=== PATIENT | male | born 1955 | race African-American/Black ===

== ENCOUNTER 2017-01-28 13:12 | Emergency (ER) | payer OTHER ==
[~2017-01-28] VITALS: Ht 172.7 cm; Wt 81.6 kg
[~2017-01-28 13:12] MED LIST: ACUVAIL 0.45%1 EACH LEFT EYE; ALBUTEROL SULF8.5 GM INH; BP pill; CYCLOBENZAPRINE10 MG ORAL; HUMALOG100 UNIT/4 SUBQ; IBUPROFEN600 MG ORAL; LANTUS SOL100 UNIT/1 SUBQ; LANTUS100 UNIT/1 SQ; OCUFLOX5 ML BOTH EYES; PREDNISONE20 MG ORAL; PROMETHAZINE-C118 M1 ORAL; TYLENOL 8 HOUR650 M1 ORAL; ZITHROMAX250 MG ORAL; [UNRECOGNIZED DRUG - REMARK]
[2017-01-28 13:37] VITALS: BP 144/92
[2017-01-28] MEDS ORDERED: ACETAMINOPHEN-1 EAC1 ORAL (13:54)
[2017-01-28] MEDS ORDERED: AMOXICILLIN500 MG ORAL (13:54)
[2017-01-28 14:07] VITALS: BP 144/92
--- NOTE | 2017-01-28 16:11 | Emergency Room Report ---
History of Present Illness General Chief Complaint: Earache Source: Patient Present Illness HPI 61-year-old male presents ED for evaluation. Patient states that for the last 4 months he's been having left ear pain. Pain is 8/10, throbbing, nonradiating. Denies any change in hearing. Patient believes it started after he had his stroke. States he had 2 strokes at the end of last year. Denies any headaches, blurry vision. Denies any chest pain or shortness of breath. No aggravating or leading factors. Denies any other associated symptoms Allergies: Coded Allergies: NO KNOWN ALLERGIES (Verified Allergy, Unknown, 01/25/16) Uncoded Allergies: ENVIRONMENTAL (Allergy, Unknown, 01/04/16) Patient History Past Medical History: HTN, CVA/TIA, seizures Past Surgical History: none Pertinent Family History: none Social History: Denies: alcohol use, drug use, smoking Immunizations: UTD Reviewed Nursing Documentation: PMH: Agreed, PSxH: Agreed Nursing Documentation-PMH Hx Hypertension: Yes Hx Pacemaker: No Hx Asthma: No Hx COPD: No Hx Diabetes: Yes Hx Cancer: No Hx Gastrointestinal Problems: No Hx Dialysis: No Hx Neurological Problems: No Hx Cerebrovascular Accident: Yes - Hemmorhagic. Left sided weakness. Hx Seizures: Yes Review of Systems All Other Systems: negative except mentioned in HPI Physical Exam Vital Signs Date Time Temp Pulse Resp B/P Pulse Ox O2 Delivery O2 Flow Rate FiO2 01/28/17 13:20 97.9 72 16 144/92 98 Room Air Sp02 EP Interpretation: reviewed, normal General Appearance: no apparent distress, alert, GCS 15, non-toxic Head: normocephalic, atraumatic Eyes: bilateral eye PERRL, bilateral eye normal inspection ENT: hearing grossly normal, normal pharynx, no angioedema, normal voice, other - L TM poor light reflex Neck: full range of motion, supple/symm/no masses Respiratory: chest non-tender, lungs clear, normal breath sounds, speaking full sentences Cardiovascular #1: regular rate, rhythm, no edema Cardiovascular #2: 2+ carotid (R), 2+ carotid (L), 2+ radial (R), 2+ radial (L) , 2+ dorsalis pedis (R), 2+ dorsalis pedis (L) Gastrointestinal: normal bowel sounds, non tender, soft, non-distended, no guarding, no rebound Rectal: deferred Genitourinary: normal inspection, no CVA tenderness Musculoskeletal: back normal, gait/station normal, normal range of motion, non- tender Neurologic: alert, oriented x3, responsive, motor strength/tone normal, sensory intact, speech normal Psychiatric: judgement/insight normal, memory normal, mood/affect normal, no suicidal/homicidal ideation Reflexes: 3+ bicep (R), 3+ bicep (L), 3+ tricep (R), 3+ tricep (L), 3+ knee (R) , 3+ knee (L) Skin: normal color, no rash, warm/dry, well hydrated Lymphatic: no adenopathy Medical Decision Making Diagnostic Impression: Primary Impression: Earache, left ER Course Hospital Course 61-year-old M presents to ED with pain L ear. no fever. Differential diagnoses include: TM perforation, otitis externa, otitis media Clinical course Patient placed on stretcher. After initial history, physical exam reveals a male in no acute distress. L TM poor light reflex. Remainder of physical exam unremarkable. clinical findings consistent with otitis media Diagnosis - L ear ache Stable and discharged to home with Rx Tylenol #3, Amoxicillin. Followup with PMD. Return to ED if symptoms recur or worsen Last Vital Signs Date Time Temp Pulse Resp B/P Pulse Ox O2 Delivery O2 Flow Rate FiO2 01/28/17 14:07 97.9 72 16 144/92 98 Room Air Status: improved Disposition: HOME, SELF-CARE Condition: Stable Scripts Acetaminophen With Codeine (T#3) (TYLENOL #3 TAB*) Y Tab 1 TAB ORAL Q8H Y for For Pain, #20 TAB Prov: PARVEZ VERGARA M.D. 01/28/17 Amoxicillin* (AMOXIL*) 500 Mg Capsule 500 MG ORAL THREE TIMES A DAY, #30 CAP Prov: PARVEZ VERGARA M.D. 01/28/17 Referrals: CLAUDIA JAIN Vishal MD [facility]ERRIN (PCP) Patient Instructions: Earache PARVEZ VERGARA M.D. Jan 28, 2017 16:11
== END 2017-01-28 14:10 | disposition home or self-care (01) ==
LOC: EMR 13:45
DX: H92.02 Otalgia, left ear (principal); I10 Essential (primary) hypertension; E11.9 Type 2 diabetes mellitus without complications; I69.154 Hemiplegia and hemiparesis following nontraumatic intracerebral hemorrhage affecting left non-dominant side
CPT/HCPCS: 99284

== ENCOUNTER 2017-11-14 17:37 | Emergency (ER) | payer OTHER ==
[~2017-11-14] VITALS: Ht 172.7 cm; Wt 76.2 kg
[~2017-11-14 17:37] MED LIST changes: +ACETAMINOPHEN-1 EAC1 ORAL; +AMOXICILLIN500 MG ORAL
[2017-11-14 17:55] VITALS: BP 120/82
--- NOTE | 2017-11-14 18:39 | Emergency Room Report ---
History of Present Illness General Chief Complaint: Constipation Source: Patient Present Illness HPI 61-year-old male patient presents ER complaining of constipation for the past 6 days. Patient reports no bowel movements or diarrhea during this time. Denies abdominal pain. Reports currently taking [place] pain medication due to history of stroke last year. Reports currently pacing by pain management. Reports currently taking stool softener, does not know any stool softener. Denies other acute symptoms at this time. Denies fever, chest pain, shortness of breath, intractable vomiting. Allergies: Coded Allergies: NO KNOWN ALLERGIES (Verified Allergy, Unknown, 01/25/16) Uncoded Allergies: ENVIRONMENTAL (Allergy, Unknown, 01/04/16) Patient History Past Medical History: see triage record Reviewed Nursing Documentation: PMH: Agreed; PSxH: Agreed Nursing Documentation-PMH Past Medical History: No History, Except For Hx Cardiac Problems: No Hx Hypertension: Yes Hx Pacemaker: No Hx Asthma: No Hx COPD: No Hx Diabetes: Yes Hx Cancer: No Hx Gastrointestinal Problems: No Hx Dialysis: No History Of Psychiatric Problem: No Hx Neurological Problems: Yes Hx Cerebrovascular Accident: Yes - left sided deficit Hx Seizures: No Review of Systems All Other Systems: negative except mentioned in HPI Physical Exam Vital Signs Date Time Temp Pulse Resp B/P (MAP) Pulse Ox O2 Delivery O2 Flow Rate FiO2 18 17:55 97.9 75 18 120/82 97 Room Air 97.9 Sp02 EP Interpretation: reviewed, normal General Appearance: well appearing, no apparent distress, alert, GCS 15, non- toxic Head: normocephalic, atraumatic Eyes: bilateral eye normal inspection, bilateral eye PERRL ENT: hearing grossly normal, normal pharynx, no angioedema, normal voice, uvula midline, moist mucus membranes Neck: full range of motion Respiratory: lungs clear, normal breath sounds, no rhonchi, no respiratory distress, no accessory muscle use, no wheezing, speaking full sentences Cardiovascular #1: regular rate, rhythm, no edema Gastrointestinal: normal bowel sounds, non tender, soft, no mass, non-distended , no guarding, no rebound, other - negative Rovsing, negative [place] Neurologic: alert, oriented x3, responsive Psychiatric: mood/affect normal Skin: no rash Medical Decision Making PA Attestation Dr. Marie is my supervising Physician whom patient management has been discussed with. Diagnostic Impression: Primary Impression: Constipation ER Course Pt presents to ED c/o constipation DDX considered but are not limited to cystitis, pyelonephritis, constipation. Low suspicion for appendicitis, no TTP at McBurney's point, negative Rovsing sign. notably patient requires imaging or labs at this time. VITAL SIGNS are WNL, patient is afebrile. ER COURSE physical exam benign, normal bowel sounds, no abdominal tenderness to palpation , patient denies abdominal pain. Patient reports left-sided deficits secondary to stroke last year, denies new or worsening of symptoms. Denies chest pain, shortness of breath, dizziness, denies other acute complaints at this time. Followup with PCP. informed patient constipation symptoms likely secondary to chronic opioid use. Will provide patient with medication for constipation symptoms, continue take stool softener. Drink plenty of fluids. Return to ER if unable to have bowel movement or new or worsening of symptoms. Follow with PCP to discuss alternative for pain treatment, due to medication likely causing constipation symptoms. DISCHARGE -Rx provided for polyethylene glycol patient FOR discharge to home, resting comfortably in bed, nontoxic appearing, able to answer questions without difficulty. Will provide with patient care instructions and any necessary prescriptions. Patient understands and agrees to treatment plan. Patient encouraged to drink plenty of fluids. Patient to take medication as instructed. Care plan and follow-up instructions provided. Patient questions asked and answered. Patient instructed to follow-up with director trading in 3 - 5 days. ER precautions given. Patient instructed to return to ER immediately for any new or worsening of symptoms. Including but not limited to fever, worsening pain , intractable vomiting. - Please note that this Emergency Department Report was dictated using Mpaxwindows infrastructure engineer technology software, occasionally this can lead to erroneous entry secondary to interpretation by the dictation equipment. Last Vital Signs Date Time Temp Pulse Resp B/P (MAP) Pulse Ox O2 Delivery O2 Flow Rate FiO2 11/14/17 17:55 97.9 75 18 120/82 97 Room Air 97.9 Disposition: HOME, SELF-CARE Condition: Stable Scripts Polyethylene Glycol 3350* (POLYETHYLENE GLYCOL 3350*) 17 Gm Powd.pack 17 GM ORAL BEDTIME PRN for Constipation, #34 PACKET Prov: Angel Llamas 11/14/17 Patient Instructions: Constipation, Adult Additional Instructions: Followup with primary care provider in 3 -5 days. Discuss need for new or alternative treatment. Take medications as directed. Drink plenty of fluids, continue take stool softener, increase fiber intake. Patient questions asked and answered. ER precautions given, patient instructed to return to ER immediately for any new or worsening of symptoms. Angel Llamas November 14, 2017 18:39
[2017-11-14] MEDS ORDERED: SENNA LAXATIVE8.6 MG PO (18:46)
[2017-11-14] MEDS ORDERED: POLYETHYLENE GL17 GM ORAL (18:51)
== END 2017-11-14 19:03 | disposition home or self-care (01) ==
LOC: EMR 18:45
DX: K59.00 Constipation, unspecified (principal); I10 Essential (primary) hypertension; Z86.73 Personal history of transient ischemic attack (TIA), and cerebral infarction without residual deficits
CPT/HCPCS: 99283

== ENCOUNTER 2018-05-06 17:43 | Emergency (ER) | payer OTHER ==
[~2018-05-06] VITALS: Ht 172.7 cm; Wt 72.6 kg
[~2018-05-06 17:43] MED LIST changes: +POLYETHYLENE GL17 GM ORAL; +SENNA LAXATIVE8.6 MG PO
[2018-05-06 18:47] VITALS: BP 139/119
[2018-05-06 19:11] LABS: APPEARANCE,URINE CLEAR; BILIRUBIN, URINE NEGATIVE (NEGATIVE); COLOR,URINE PALE YELLOW; GLUCOSE, URINE (UA) NEGATIVE (NEGATIVE); KETONES,URINE NEGATIVE (NEGATIVE); LEUKOCYTE ESTERASE ,URINE 1+ (NEGATIVE); NITRITE,URINE NEGATIVE (NEGATIVE); PH,URINE 6.5 (4.5-8.0); PROTEIN,URINE NEGATIVE (NEGATIVE); UROBILINOGEN,URINE NORMAL MG/DL (0.0-1.0)
[2018-05-06] MEDS ORDERED: SENNA LAXATIVE8.6 MG PO (19:29)
[2018-05-06] MEDS ORDERED: COLACE100 MG ORAL (19:29)
--- NOTE | 2018-05-06 19:32 | Emergency Room Report ---
History of Present Illness General Chief Complaint: Constipation Source: Patient Present Illness HPI 62-year-old male, presenting with constipation for the last 6 days. Patient did say that he has been some gas. Has suffered from constipation the past. Has not seen a gastrointestinal doctor in the past. No colonoscopy. No history of abdominal surgeries. Denies any abdominal pain. No nausea no vomiting has been eating and drinking well Allergies: Coded Allergies: NO KNOWN ALLERGIES (Verified Allergy, Unknown, 01/25/16) Uncoded Allergies: ENVIRONMENTAL (Allergy, Unknown, 01/04/16) Patient History Past Medical History: see triage record Past Surgical History: none Pertinent Family History: none Reviewed Nursing Documentation: PMH: Agreed; PSxH: Agreed Nursing Documentation-PMH Past Medical History: No History, Except For Hx Cardiac Problems: No Hx Hypertension: Yes Hx Pacemaker: No Hx Asthma: No Hx COPD: No Hx Diabetes: Yes Hx Cancer: No Hx Gastrointestinal Problems: No Hx Dialysis: No History Of Psychiatric Problem: No Hx Neurological Problems: Yes - left sided weakness Hx Cerebrovascular Accident: Yes - left sided deficit x 2, aneurysm Hx Seizures: Yes Review of Systems All Other Systems: negative except mentioned in HPI Physical Exam Vital Signs Date Time Temp Pulse Resp B/P (MAP) Pulse Ox O2 Delivery O2 Flow Rate FiO2 05/06/18 17:56 98.4 71 14 147/97 99 Room Air Sp02 EP Interpretation: reviewed, normal General Appearance: normal inspection, well appearing, no apparent distress, other - eating a sandwich. no distress Head: normocephalic, atraumatic Eyes: bilateral eye normal inspection, bilateral eye PERRL, bilateral eye EOMI ENT: normal ENT inspection, normal pharynx, normal voice, moist mucus membranes Neck: normal inspection, full range of motion, supple Respiratory: normal inspection, lungs clear, normal breath sounds, no respiratory distress, no retraction, no wheezing, speaking full sentences, chest symmetrical Cardiovascular #1: normal inspection, regular rate, rhythm, no edema, normal capillary refill Cardiovascular #2: 2+ radial (R), 2+ radial (L) Gastrointestinal: normal inspection, non tender, soft, non-distended, no guarding, other - nontender abdomen. nondistended Musculoskeletal: normal inspection, back normal, normal range of motion, non- tender Neurologic: normal inspection, alert, oriented x3, responsive, motor strength/ tone normal, sensory intact, normal gait, speech normal Psychiatric: normal inspection, judgement/insight normal, memory normal Skin: normal inspection, normal color, no rash, warm/dry, well hydrated, normal turgor Medical Decision Making Diagnostic Impression: Primary Impression: Constipation ER Course 62-year-old male presenting with 60s of constipation, is passing gas, not having any abdominal pain DDX: Constipation, possibility of opiate-induced he does have a habit of taking [place] Plan: Labs, KUB ER course: Patient has remained stable during ED stay. He has been eating and drinking here, eating a sandwich although I did not endorse this Repeat abdominal exam has been benign, vital signs stable pt had BM after enema Disposition: Patient is to be discharged to home. Prescriptions given are colace and senna Patient is instructed to follow up with their primary care doctor within 5 days. Strict return precautions discussed with patient such as fever, chills, worsening/severe pain, chest pain, SOB, nausea, vomiting, which may indicate severe illness. Patient verbalizes understanding and agrees with plan. Please note that this Emergency Department Report was dictated using [employer] hand technology software, occasionally this can lead to erroneous entry secondary to interpretation by the dictation equipment Rhythm Strip EP Interpretation: Yes Rate: 67 Rhythm: NSR, no PVCs, no ectopy EKG Diagnostic Results EP Interpretation: Yes Rate: normal Rhythm: NSR ST Segments: No acute changes ASA given to patient: No Laboratory Tests Test 05/06/18 18:20 05/06/18 19:20 Urine Color Pale yellow Urine Appearance Clear Urine pH 6.5 (4.5-8.0) Urine Specific [place] 1.010 (1.005-1.035) Urine Protein Negative (NEGATIVE) Urine Glucose (UA) Negative (NEGATIVE) Urine Ketones Negative (NEGATIVE) Urine Blood Negative (NEGATIVE) Urine Nitrite Negative (NEGATIVE) Urine Bilirubin Negative (NEGATIVE) Urine Urobilinogen Normal MG/DL (0.0-1.0) Urine Leukocyte Esterase 1+ (NEGATIVE) H Urine RBC 0-2 /HPF (0 - 0) H Urine WBC 0-2 /HPF (0 - 0) Urine Squamous Epithelial Cells None /LPF (NONE/OCC) Urine Bacteria Few /HPF (NONE) White Blood Count 6.9 K/UL (4.8-10.8) Red Blood Count 5.44 M/UL (4.70-6.10) Hemoglobin 17.3 G/DL (14.2-18.0) Hematocrit 50.3 % (42.0-52.0) Mean Corpuscular Volume 93 FL (80-99) Mean Corpuscular Hemoglobin 31.9 PG (27.0-31.0) H Mean Corpuscular Hemoglobin Concent 34.5 G/DL (32.0-36.0) Red Cell Distribution Width 11.0 % (11.6-14.8) L Platelet Count 251 K/UL (150-450) Mean Platelet Volume 7.4 FL (6.5-10.1) Neutrophils (%) (Auto) 44.5 % (45.0-75.0) L Lymphocytes (%) (Auto) 45.2 % (20.0-45.0) H Monocytes (%) (Auto) 4.9 % (1.0-10.0) Eosinophils (%) (Auto) 3.4 % (0.0-3.0) H Basophils (%) (Auto) 2.0 % (0.0-2.0) Sodium Level 137 MMOL/L (136-145) Potassium Level 4.8 MMOL/L (3.5-5.1) Chloride Level 102 MMOL/L (98-107) Carbon Dioxide Level 28 MMOL/L (21-32) Anion Gap 7 mmol/L (5-15) Blood Urea Nitrogen 8 mg/dL (7-18) Creatinine 0.8 MG/DL (0.55-1.30) Estimate Glomerular Filtration Rate > 60 mL/min (>60) Glucose Level 99 MG/DL (74-106) Calcium Level 10.0 MG/DL (8.5-10.1) Total Bilirubin 0.9 MG/DL (0.2-1.0) Aspartate Amino Transferase (AST) 54 U/L (15-37) H Alanine Aminotransferase (ALT) 67 U/L (12-78) Alkaline Phosphatase 104 U/L (46-116) Total Protein 9.8 G/DL (6.4-8.2) H Albumin 4.0 G/DL (3.4-5.0) Globulin 5.8 g/dL Albumin/Globulin Ratio 0.7 (1.0-2.7) L Lipase 189 U/L (73-393) Last Vital Signs Date Time Temp Pulse Resp B/P (MAP) Pulse Ox O2 Delivery O2 Flow Rate FiO2 05/06/18 18:47 98.4 65 14 139/119 98 Room Air Disposition: HOME, SELF-CARE Condition: Stable Scripts Sennosides (SENNA LAXATIVE) 8.6 Mg Tablet 8.6 MG PO DAILY, #20 TAB Prov: Devan Jones M.D. 05/06/18 Docusate Sodium* (COLACE*) 100 Mg Capsule 100 MG ORAL THREE TIMES A DAY, #40 CAP Prov: Devan Jones M.D. 05/06/18 Referrals: [facility]ERR[facility] (PCP) Patient Instructions: Constipation, Adult Devan Jones M.D. May 06, 2018 19:32
[2018-05-06] MEDS ORDERED: Fleet's Enema 133ml RECTAL ONE (19:45)
[2018-05-06 19:50] LABS: EOSINOPHILS % (AUTO) 3.4 % (0.0-3.0); HEMATOCRIT 50.3 % (42.0-52.0); HEMOGLOBIN 17.3 G/DL (14.2-18.0); LYMPHOCYTES % (AUTO) 45.2 % (20.0-45.0); MEAN CORPUSCULAR VOLUME 93 FL (80-99); MONOCYTES % (AUTO) 4.9 % (1.0-10.0); NEUTROPHILS % (AUTO) 44.5 % (45.0-75.0); PLATELET COUNT 251 K/UL (150-450); RED BLOOD COUNT 5.44 M/UL (4.70-6.10); WHITE BLOOD COUNT 6.9 K/UL (4.8-10.8)
[2018-05-06 19:53] LABS: POTASSIUM 4.8 MMOL/L (3.5-5.1)
[2018-05-06 20:09] LABS: ANION GAP 7 mmol/L (5-15); BLOOD UREA NITROGEN 8 mg/dL (7-18); CARBON DIOXIDE 28 MMOL/L (21-32); CHLORIDE 102 MMOL/L (98-107); CREATININE 0.8 MG/DL (0.55-1.30); SODIUM 137 MMOL/L (136-145)
[2018-05-06 20:13] LABS: ALANINE AMINOTRANSFERASE 67 U/L (12-78); ALBUMIN/GLOBULIN RATIO 0.7 (1.0-2.7); ALKALINE PHOSPHATASE 104 U/L (46-116); ASPARTATE AMINO TRANSFERASE 54 U/L (15-37); BILIRUBIN,TOTAL 0.9 MG/DL (0.2-1.0)
[2018-05-06 20:39] VITALS: BP 135/97
--- NOTE | 2018-05-07 11:28 | Diagnostic Imaging Report ---
Indication: Abdominal pain Technique: Supine view of the abdomen Comparison: none Findings: Bowel gas pattern is unremarkable. No unusual masses or calcifications. There is moderate retained stool. Impression: No acute process
--- NOTE | 2018-05-08 16:37 | Cardiology Report ---
APPROVED REPORT EKG Measurement Heart [id number] ID [id number] Normal sinus rhythm Nonspecific T wave abnormality Abnormal ECG
== END 2018-05-06 20:39 | disposition home or self-care (01) ==
LOC: EMR 18:37
DX: K59.00 Constipation, unspecified (principal); I10 Essential (primary) hypertension; E11.9 Type 2 diabetes mellitus without complications; Z86.73 Personal history of transient ischemic attack (TIA), and cerebral infarction without residual deficits
CPT/HCPCS: 36415; 74018; 80053; 81003; 83690; 85025; 93005; 99284

== ENCOUNTER 2018-10-04 19:15 | Emergency (ER) | payer OTHER ==
[~2018-10-04] VITALS: Ht 172.7 cm; Wt 70.8 kg
[~2018-10-04 19:15] MED LIST changes: +COLACE100 MG ORAL
[2018-10-04] MEDS ORDERED: Insulin Human Regular 100units/ml 3ml IV ONE (19:30)
--- NOTE | 2018-10-04 19:33 | Emergency Room Report ---
History of Present Illness General Chief Complaint: Abnormal Labs Source: Patient Present Illness HPI Patient presents with complaints of his blood glucose remaining elevated He reports that he had some oatmeal with large amount of sugar than usual today Patient is an insulin-dependent diabetic Otherwise denies any fevers or chills denies any chest pain denies any nausea vomiting denies any dysuria frequency patient reports that he has had recent CVAs with left-sided deficit Allergies: Coded Allergies: NO KNOWN ALLERGIES (Verified Allergy, Unknown, 01/25/16) Uncoded Allergies: ENVIRONMENTAL (Allergy, Unknown, 01/04/16) Patient History Past Medical History: see triage record Pertinent Family History: none Reviewed Nursing Documentation: PMH: Agreed; PSxH: Agreed Nursing Documentation-PMH Past Medical History: No History, Except For Hx Cardiac Problems: No Hx Hypertension: Yes Hx Pacemaker: No Hx Asthma: No Hx COPD: No Hx Diabetes: Yes Hx Cancer: No Hx Gastrointestinal Problems: No Hx Dialysis: No Hx Neurological Problems: Yes - left sided weakness Hx Cerebrovascular Accident: Yes - left sided deficit x 2, aneurysm Hx Seizures: Yes Review of Systems All Other Systems: negative except mentioned in HPI Physical Exam Vital Signs Date Time Temp Pulse Resp B/P (MAP) Pulse Ox O2 Delivery O2 Flow Rate FiO2 10/04/18 19:18 98.4 72 8 112/76 97 Room Air Sp02 EP Interpretation: reviewed, normal General Appearance: well appearing, no apparent distress Head: atraumatic, other - Evidence of previous craniectomy Eyes: bilateral eye PERRL, bilateral eye EOMI ENT: hearing grossly normal, normal pharynx, TMs + canals normal, uvula midline Neck: supple Cardiovascular #1: regular rate, rhythm Gastrointestinal: non tender, soft Genitourinary: no CVA tenderness Musculoskeletal: other - Some minimal deficit with left hand compared to the right Neurologic: alert, oriented x3, responsive Skin: no rash, warm/dry Lymphatic: no adenopathy Medical Decision Making Diagnostic Impression: Primary Impression: Hyperglycemia ER Course Multiple differentials and consideration including but not limited to, DKA, dehydration, infection Patient's blood work otherwise looks appropriate without signs of acidemia After further discussion patient also reporting some noncompliance with checking his glucose and also administering insulin Patient's family is here will have close outpatient follow-up and return with any changes Labs Test 10/04/18 19:55 White Blood Count 9.2 K/UL (4.8-10.8) Red Blood Count 5.19 M/UL (4.70-6.10) Hemoglobin 15.6 G/DL (14.2-18.0) Hematocrit 45.5 % (42.0-52.0) Mean Corpuscular Volume 88 FL (80-99) Mean Corpuscular Hemoglobin 30.1 PG (27.0-31.0) Mean Corpuscular Hemoglobin Concent 34.4 G/DL (32.0-36.0) Red Cell Distribution Width 10.1 % (11.6-14.8) Platelet Count 152 K/UL (150-450) Mean Platelet Volume 7.6 FL (6.5-10.1) Neutrophils (%) (Auto) 52.5 % (45.0-75.0) Lymphocytes (%) (Auto) 40.9 % (20.0-45.0) Monocytes (%) (Auto) 3.6 % (1.0-10.0) Eosinophils (%) (Auto) 1.9 % (0.0-3.0) Basophils (%) (Auto) 1.2 % (0.0-2.0) Sodium Level 131 MMOL/L (136-145) Potassium Level 5.1 MMOL/L (3.5-5.1) Chloride Level 96 MMOL/L (98-107) Carbon Dioxide Level 29 MMOL/L (21-32) Anion Gap 6 mmol/L (5-15) Blood Urea Nitrogen 16 mg/dL (7-18) Creatinine 1.1 MG/DL (0.55-1.30) Estimat Glomerular Filtration Rate > 60 mL/min (>60) Glucose Level 440 MG/DL (74-106) Calcium Level 9.8 MG/DL (8.5-10.1) Rhythm Strip Diag. Results EP Interpretation: yes Rate: 77 Rhythm: NSR, no PVC's, no ectopy Last Vital Signs Date Time Temp Pulse Resp B/P (MAP) Pulse Ox O2 Delivery O2 Flow Rate FiO2 10/04/18 19:18 98.4 72 8 112/76 97 Room Air Status: improved Disposition: HOME, SELF-CARE Condition: Improved Additional Instructions: Patient is provided with the discharge instructions notified to follow up with primary doctor in the next 2-3 days otherwise return to the er with any worsening symptoms. Please note that this report is being documented using DRAGON technology. This can lead to erroneous entry secondary to incorrect interpretation by the dictating instrument. Mandy Gutierrez DO Oct 04, 2018 19:33
[2018-10-04] MEDS ORDERED: HYDROCHLOROTHIA25 MG ORAL (19:34)
[2018-10-04] MEDS ORDERED: GABAPENTIN400 MG ORAL (19:34)
[2018-10-04] MEDS ORDERED: LEVETIRACETAM500 MG ORAL (19:34)
[2018-10-04] MEDS ORDERED: LISINOPRIL20 MG ORAL (19:34)
[2018-10-04] MEDS ORDERED: CATAPRES0.1 MG ORAL (19:34)
[2018-10-04] MEDS ORDERED: JANUMET 50-5001 EACH ORAL (19:34)
[2018-10-04] MEDS ORDERED: ZETIA10 MG ORAL (19:34)
[2018-10-04 19:52] VITALS: BP 118/78
--- NOTE | 2018-10-04 20:01 | NUR ---
ED Nurse Note: pt walked in c/o uncontrolled BS, pt states at home when he checked it read high. Pt's BS in triage was 455. PT states he takes lantus 37 units at night and is on sliding scale w/ humolog. pt AA&ox4, gcs=15, skin warm and dry, resp even and unlabored on RA, -n/v/d, ambulatory w/ steady gait, hx left side weakness. will cont monitor. vss.
[2018-10-04 20:15] LABS: BASOPHILS % (AUTO) 1.2 % (0.0-2.0); EOSINOPHILS % (AUTO) 1.9 % (0.0-3.0); HEMATOCRIT 45.5 % (42.0-52.0); HEMOGLOBIN 15.6 G/DL (14.2-18.0); LYMPHOCYTES % (AUTO) 40.9 % (20.0-45.0); MEAN CORPUSCULAR VOLUME 88 FL (80-99); MONOCYTES % (AUTO) 3.6 % (1.0-10.0); NEUTROPHILS % (AUTO) 52.5 % (45.0-75.0); PLATELET COUNT 152 K/UL (150-450); RED BLOOD COUNT 5.19 M/UL (4.70-6.10); RED CELL DISTRIBUTION WIDTH 10.1 % (11.6-14.8); WHITE BLOOD COUNT 9.2 K/UL (4.8-10.8)
[2018-10-04 20:27] LABS: ANION GAP 6 mmol/L (5-15); BLOOD UREA NITROGEN 16 mg/dL (7-18); CALCIUM 9.8 MG/DL (8.5-10.1); CARBON DIOXIDE 29 MMOL/L (21-32); CHLORIDE 96 MMOL/L (98-107); CREATININE 1.1 MG/DL (0.55-1.30); POTASSIUM 5.1 MMOL/L (3.5-5.1); SODIUM 131 MMOL/L (136-145)
--- NOTE | 2018-10-04 20:48 | NUR ---
ED Nurse Note: pt cleared to be d/c per ERMD, pt discharge and aftercare instruction provided, pt education done via discussion and handout, pt advised to follow up with pcp to continue care or return to ed if sx worsen or new sx develop, pt verbalized understanding and agrees with plan, vss, ambulatory w/ steady gait, left w/ all belongings.
--- NOTE | 2018-10-04 20:49 | NUR ---
ED Nurse Note: iv d/c and ID band removed.
[2018-10-04 20:50] VITALS: BP 116/78
== END 2018-10-04 20:51 | disposition home or self-care (01) ==
LOC: EMR 19:49
DX: E11.65 Type 2 diabetes mellitus with hyperglycemia (principal); Z91.09 Other allergy status, other than to drugs and biological substances; Z79.4 Long term (current) use of insulin; I10 Essential (primary) hypertension; G81.92 Hemiplegia, unspecified affecting left dominant side; G40.909 Epilepsy, unspecified, not intractable, without status epilepticus
CPT/HCPCS: 36415; 80048; 82962; 85025; 96361; 96374; 99284; J1815

== ENCOUNTER 2019-05-14 10:27 | Emergency (ER) | payer SELFPAY ==
[~2019-05-14] VITALS: Ht 172.7 cm; Wt 79.4 kg
[~2019-05-14 10:27] MED LIST changes: +CATAPRES0.1 MG ORAL; +GABAPENTIN400 MG ORAL; +HYDROCHLOROTHIA25 MG ORAL; +JANUMET 50-5001 EACH ORAL; +LEVETIRACETAM500 MG ORAL; +LISINOPRIL20 MG ORAL; +ZETIA10 MG ORAL
[2019-05-14 10:55] VITALS: BP 120/80
--- NOTE | 2019-05-14 11:01 | NUR ---
ED Nurse Note: BROUGHT BY DUE TO NON-RADIATING LOWER BACK PAIN X1 DAY. DENIES ANY RECENT INJURY.
--- NOTE | 2019-05-14 11:09 | Emergency Room Report ---
History of Present Illness General Chief Complaint: Back Pain-No Injury Source: Patient, Medical Record Present Illness HPI Patient presents with complaints of low back pain reports that upon awaking this morning he had increased spasming lower back area Had difficulty sitting up and ambulating Denies any chest pain denies any abdominal pain denies any recent trauma denies any dysuria frequency There is significant musculoskeletal pathology related with the discomfort Initially patient reports that he has seen his primary physician several times with similar back problems Also initially reports that there has been no testing obtained On further discussion patient now reports that he has had MRI in the past and has 3 slipped disks reported Patient also reports that he is getting set for an epidural Which she has had one time in the past with improved symptoms Allergies: Coded Allergies: NO KNOWN ALLERGIES (Verified Allergy, Unknown, 01/25/16) Uncoded Allergies: ENVIRONMENTAL (Allergy, Unknown, 01/04/16) Patient History Past Medical History: see triage record Reviewed Nursing Documentation: PMH: Agreed; PSxH: Agreed Nursing Documentation-PMH Past Medical History: No History, Except For Hx Cardiac Problems: No Hx Hypertension: Yes Hx Pacemaker: No Hx Asthma: No Hx COPD: No Hx Diabetes: Yes Hx Cancer: No Hx Gastrointestinal Problems: No Hx Dialysis: No History Of Psychiatric Problem: No Hx Neurological Problems: Yes - left sided weakness Hx Cerebrovascular Accident: Yes - left sided deficit x 2, aneurysm Hx Seizures: Yes Review of Systems All Other Systems: negative except mentioned in HPI Physical Exam Vital Signs Date Time Temp Pulse Resp B/P (MAP) Pulse Ox O2 Delivery O2 Flow Rate FiO2 05/14/19 10:48 97.9 74 18 120/80 (93) 97 Room Air Sp02 EP Interpretation: reviewed, normal General Appearance: well appearing, no apparent distress Head: normocephalic, atraumatic Eyes: bilateral eye PERRL ENT: hearing grossly normal, EOM grossly intact Neck: supple Respiratory: no respiratory distress, no retraction Cardiovascular #1: regular rate, rhythm Gastrointestinal: non tender Musculoskeletal: other - Increased spasming noted paralumbar area L3-L4 region no midline step-off sensory is intact distally Neurologic: alert, oriented x3 Psychiatric: normal inspection Skin: no rash Medical Decision Making Diagnostic Impression: Primary Impression: Back pain ER Course Given the patient's history and presentation multiple differentials are in consideration including but not limited to neurological, neurosurgical, infectious, musculoskeletal pathology Patient has acute intervention performed in the ER Patient remains neurologically intact my suspicion for emergencies such as cauda equina is low and patient will have initial conservative outpatient trial Return with any changes or concerns Last Vital Signs Date Time Temp Pulse Resp B/P (MAP) Pulse Ox O2 Delivery O2 Flow Rate FiO2 05/14/19 10:55 97.9 76 18 120/80 97 Room Air Status: improved Disposition: HOME, SELF-CARE Condition: Improved Scripts Hydrocodone Bit/Acetaminophen 5-325* (NORCO 5-325*) 1 Each Tablet 1 TAB ORAL Q8HR PRN for For Pain, #10 TAB 0 Refills Prov: Mandy Gutierrez DO 05/14/19 Methocarbamol* (ROBAXIN-750*) 750 Mg Tablet 750 MG PO TID, #21 TAB 0 Refills Prov: Mandy Gutierrez DO 05/14/19 Ibuprofen* (MOTRIN*) 600 Mg Tablet 600 MG ORAL Q8H PRN for For Pain, #20 TAB 0 Refills Prov: Mandy Gutierrez DO 05/14/19 Additional Instructions: Patient is provided with the discharge instructions notified to follow up with primary doctor in the next 2-3 days otherwise return to the er with any worsening symptoms. Please note that this report is being documented using [employer] technology. This can lead to erroneous entry secondary to incorrect interpretation by the dictating instrument. Mandy Gutierrez DO May 14, 2019 11:09
[2019-05-14] MEDS ORDERED: HYDROcodone/Acetamin 10/325 tab ORAL ONE (11:15)
[2019-05-14] MEDS ORDERED: Ketorolac 60mg Inj IM ONE (11:15)
[2019-05-14] MEDS ORDERED: NORCO 5-325 TA1 EACH ORAL (11:28)
[2019-05-14] MEDS ORDERED: ROBAXIN-750750 MG PO (11:28)
[2019-05-14] MEDS ORDERED: IBUPROFEN600 MG ORAL (11:28)
[2019-05-14 11:36] VITALS: BP 120/80
--- NOTE | 2019-05-14 11:36 | NUR ---
ED Nurse Note: Pt cleared by health care Provider for discharge. DC instructions/prescription was given and explained to pt and verbalized understanding of teachings. All medical deviecs such as ID band removed. Pt is AAO x4, ambulatory and left with all personal belongings.
== END 2019-05-14 11:37 | disposition home or self-care (01) ==
LOC: EMR 11:15
DX: M54.5 Low back pain (principal); I10 Essential (primary) hypertension; G81.94 Hemiplegia, unspecified affecting left nondominant side; G40.909 Epilepsy, unspecified, not intractable, without status epilepticus; E11.9 Type 2 diabetes mellitus without complications
CPT/HCPCS: 96372; 99283

== ENCOUNTER 2019-07-28 10:15 | Emergency (ER) | payer SELFPAY ==
[~2019-07-28] VITALS: Ht 172.7 cm; Wt 77.6 kg
[~2019-07-28 10:15] MED LIST changes: +NORCO 5-325 TA1 EACH ORAL; +ROBAXIN-750750 MG PO
[2019-07-28] MEDS ORDERED: HYDROCHLOROTHIA25 MG ORAL (10:27)
[2019-07-28] MEDS ORDERED: CATAPRES0.1 MG ORAL (10:27)
[2019-07-28] MEDS ORDERED: ZETIA10 MG ORAL (10:27)
[2019-07-28] MEDS ORDERED: LISINOPRIL40 MG ORAL (10:27)
[2019-07-28] MEDS ORDERED: JANUMET XR 50-1 EACH ORAL (10:27)
[2019-07-28] MEDS ORDERED: GABAPENTIN600 MG ORAL (10:27)
[2019-07-28] MEDS ORDERED: LEVETIRACETAM500 MG ORAL (10:27)
[2019-07-28] MEDS ORDERED: BANOPHEN25 MG PO (10:27)
--- NOTE | 2019-07-28 10:27 | NUR ---
ED Nurse Note: pt a reports coughing at night x 2 days. pt denies taking medication prior to arrival. pt reports no other symptoms.
[2019-07-28 10:28] VITALS: BP 138/90
--- NOTE | 2019-07-28 10:49 | Emergency Room Report ---
History of Present Illness General Chief Complaint: Upper Respiratory Illness Source: Patient Present Illness HPI Patient is a 62-year-old male presents after increased cough intermittently. Prior history of CVA. He also has prior history of hypertension. Cough is with the supine position. Denies any fever or body aches. Some left-sided ear pain which has been chronic for several years. Denies any vomiting. Denies diarrhea. Reports having some increased discomfort to his abdominal wall. He denies being a smoker. Cough is nonproductive. Allergies: Coded Allergies: NO KNOWN ALLERGIES (Verified Allergy, Unknown, 01/25/16) Uncoded Allergies: ENVIRONMENTAL (Allergy, Unknown, 01/04/16) Patient History Past Medical History: see triage record Reviewed Nursing Documentation: PMH: Agreed; PSxH: Agreed Nursing Documentation-PMH Past Medical History: No History, Except For Hx Cardiac Problems: No Hx Hypertension: Yes Hx Pacemaker: No Hx Asthma: No Hx COPD: No Hx Diabetes: Yes Hx Cancer: No Hx Gastrointestinal Problems: No Hx Dialysis: No Hx Neurological Problems: Yes - left sided weakness Hx Cerebrovascular Accident: Yes - left sided deficit x 2, aneurysm Hx Seizures: Yes Review of Systems All Other Systems: negative except mentioned in HPI Physical Exam Vital Signs Date Time Temp Pulse Resp B/P (MAP) Pulse Ox O2 Delivery O2 Flow Rate FiO2 07/28/19 10:19 97.9 81 17 138/90 (106) 99 Room Air Sp02 EP Interpretation: reviewed, normal General Appearance: normal inspection, well appearing, no apparent distress, alert, GCS 15 Head: atraumatic ENT: normal ENT inspection, hearing grossly normal, normal voice Neck: normal inspection, full range of motion, supple, no bony tend Respiratory: normal inspection, lungs clear, normal breath sounds, no respiratory distress, no retraction, no wheezing Cardiovascular #1: regular rate, rhythm, no edema Gastrointestinal: normal inspection, normal bowel sounds, non tender, soft, no guarding, no hernia Genitourinary: no CVA tenderness Musculoskeletal: normal inspection, back normal, normal range of motion Neurologic: alert, clinical operations consultant III-XII nml as tested, oriented x3, responsive Psychiatric: normal inspection, judgement/insight normal, mood/affect normal Medical Decision Making Diagnostic Impression: Primary Impression: Viral upper respiratory infection ER Course Patient presented for cough. Differential diagnosis included but was not limited to bronchitis, pneumonia, pulmonary embolism, pericarditis, asthma, foreign body. Patient has a benign exam and does not appear to require any imaging or laboratory testing at this time. Patient appears to have a viral upper respiratory infection. The patient is advised to follow up with primary care doctor in 1-2 days. Patient is advised to return if any worsening condition or if any changes in status that are concerning. This report is dictated with [employer] man software which may occasionally lead to discrepancies related to use of this software. Last Vital Signs Date Time Temp Pulse Resp B/P (MAP) Pulse Ox O2 Delivery O2 Flow Rate FiO2 07/28/19 10:28 81 17 Room Air 07/28/19 10:28 97.9 138/90 99 Status: improved Disposition: HOME, SELF-CARE Condition: Stable Scripts Albuterol Sulfate* (ALBUTEROL SULFATE MDI*) 8.5 Gm Hfa.aer.ad 2 PUFF INH Q6H, #1 EA 0 Refills Prov: Tim Marie MD 07/28/19 Guaifenesin/Dextromethorphan* (Guaifenesin Dm Syrup*) 5 Ml Syrup 5 ML ORAL Q8H PRN for FOR COUGH, #118 ML 0 Refills Prov: Tim Marie MD 07/28/19 Referrals: NON PHYSICIAN (PCP) Tim Marie MD Jul 28, 2019 10:49
[2019-07-28] MEDS ORDERED: Guaifenesin/DM 10ml syrup ORAL ONE (11:00)
--- NOTE | 2019-07-28 11:13 | NUR ---
ED Nurse Note: xray completed
[2019-07-28] MEDS ORDERED: ALBUTEROL SULF8.5 GM INH (11:39)
[2019-07-28] MEDS ORDERED: GUAIFENESIN DM118 M1 ORAL (11:39)
[2019-07-28 11:41] VITALS: BP 135/85
--- NOTE | 2019-07-28 11:42 | NUR ---
ER DISCHARGE NOTE: Patient is cleared to be discharged per ERMD, pt is aox4, on room air, with stable vital signs. pt was given dc instructions, pt was able to verbalize understanding, pt id bandremoved. pt is able to ambulate with steady gait. pt took all belongings.
--- NOTE | 2019-07-28 12:15 | Diagnostic Imaging Report ---
Indication: Dyspnea Comparison: None A single view chest radiograph was obtained. Findings: Cardiomediastinal appearance is within normal limits for age. The lungs are clear. Pulmonary vascularity is appropriate. The diaphragmatic contour is smooth and costophrenic angles are sharp. No pleural effusions are identified. The bones are osteopenic. Impression: No acute findings
== END 2019-07-28 11:42 | disposition home or self-care (01) ==
LOC: EMR 10:35
DX: R05 Cough (principal); H92.02 Otalgia, left ear; I10 Essential (primary) hypertension; E11.9 Type 2 diabetes mellitus without complications; G40.909 Epilepsy, unspecified, not intractable, without status epilepticus; G81.94 Hemiplegia, unspecified affecting left nondominant side
CPT/HCPCS: 71045; 99283

== ENCOUNTER 2020-04-29 10:13 | Emergency (ER) | payer SELFPAY ==
[~2020-04-29] VITALS: Ht 172.7 cm; Wt 78.9 kg
[~2020-04-29 10:13] MED LIST changes: +BANOPHEN25 MG PO; +GABAPENTIN600 MG ORAL; +GUAIFENESIN DM118 M1 ORAL; +JANUMET XR 50-1 EACH ORAL; +LISINOPRIL40 MG ORAL
--- NOTE | 2020-04-29 10:42 | NUR ---
ED Nurse Note:pt. came for STD check, c/o white discharge, urine sent to labs
[2020-04-29 10:43] VITALS: BP 144/94
[2020-04-29 10:51] LABS: APPEARANCE,URINE CLEAR; BILIRUBIN, URINE NEGATIVE (NEGATIVE); COLOR,URINE PALE YELLOW; GLUCOSE, URINE (UA) 4+ (NEGATIVE); KETONES,URINE NEGATIVE (NEGATIVE); LEUKOCYTE ESTERASE ,URINE NEGATIVE (NEGATIVE); NITRITE,URINE NEGATIVE (NEGATIVE); PH,URINE 5 (4.5-8.0); PROTEIN,URINE 2+ (NEGATIVE); UROBILINOGEN,URINE NORMAL MG/DL (0.0-1.0)
--- NOTE | 2020-04-29 10:57 | Emergency Room Report ---
History of Present Illness General Chief Complaint: Male Urogenital Problems Source: Patient Present Illness HPI Patient presents complaining of possible sexually transmitted disease. There is a white buildup under his foreskin. Denies any dysuria. There is no fever chills or lymphadenopathy. He has been having unprotected sex with multiple partners. There is no hematuria. The patient complains of constipation. There is no hematochezia or bright red blood per rectum. The patient is a diabetic. He takes insulin -Lantus 37 and sliding scale. He states his blood sugars have been 120. The patient is status post aneurysmal bleed x2 with left-sided weakness. This is unchanged. He denies any headache. Although he has had multiple partners he does not believe he has been exposed to Covid positive contacts. The patient has chronic L foot pain. 01/30 post stroke. No sore throat, chest pain, palpitations, nausea, vomiting, diarrhea, abdominal pain, shortness of breath, depression, anxiety, visual changes, dizziness, headache. The patient has a history of seizures on Keppra and gabapentin. No recent seizure activity. Allergies: Coded Allergies: NO KNOWN ALLERGIES (Verified Allergy, Unknown, 01/25/16) Uncoded Allergies: ENVIRONMENTAL (Allergy, Unknown, 01/04/16) COVID-19 Screening Contact w/high risk pt: No Experienced COVID-19 symptoms?: No COVID-19 Testing performed DRILL SETUP OPERATOR: No Patient History Past Medical History: see triage record Past Surgical History: other - Brain surgery for aneurysms Social History: Reports: drug use - Will not specify; Denies: smoking Social History Narrative , here with friend Reviewed Nursing Documentation: PMH: Agreed; PSxH: Agreed Nursing Documentation-PMH Hx Cardiac Problems: No Hx Hypertension: Yes Hx Pacemaker: No Hx Asthma: No Hx COPD: No Hx Diabetes: Yes Hx Cancer: No Hx Gastrointestinal Problems: No Hx Dialysis: No Hx Neurological Problems: Yes - left sided weakness Hx Cerebrovascular Accident: Yes - left sided deficit x 2, aneurysm Hx Seizures: Yes Review of Systems All Other Systems: negative except mentioned in HPI Physical Exam Vital Signs Date Time Temp Pulse Resp B/P (MAP) Pulse Ox O2 Delivery O2 Flow Rate FiO2 04/29/20 10:25 98.4 82 144/94 (111) Room Air Sp02 EP Interpretation: reviewed, normal General Appearance: well appearing, no apparent distress, GCS 15 Head: normocephalic, other - Postsurgical changes right scalp Eyes: bilateral eye normal inspection, bilateral eye PERRL, bilateral eye EOMI ENT: moist mucus membranes - Slightly dry Neck: full range of motion, supple Respiratory: chest non-tender, lungs clear, normal breath sounds Cardiovascular #1: regular rate, rhythm Cardiovascular #2: 2+ radial (R) Gastrointestinal: normal inspection, non tender, soft Musculoskeletal: decreased range of mation - Left-sided, other - Left-sided weakness Neurologic: alert, sensory intact, motor weakness - Left-sided 3-4/10, speech normal Psychiatric: mood/affect normal Skin: no rash, warm/dry, other - Surgical scar right scalp Medical Decision Making Diagnostic Impression: Primary Impression: Hyperglycemia Additional Impressions: Monilia of penis Status post stroke Constipation Qualified Codes: K59.09 - Other constipation ER Course Patient presents with possible sexually transmitted disease. Differential includes chlamydia, gonorrhea, monilia amongst others. The patient is diabetic and an Accu-Chek will be obtained. Clinically the patient has a yeast infection of the penis and fluconazole will be prescribed at this time. He is also complaining about pain and [place] will be administered. The pain is not in the genitals. The pain is in his left foot and this is a chronic problem. The complex patient. The presenting problem is fairly straightforward. Urinalysis obtained and chlamydia and gonorrhea test sent. Accucheck = 525. Patient transferred to [facility] side for medical evaluation. 1130. Concern for DKA, hyperglycemia, noncompliance and other electrolyte abnormalities. Evaluation with EKG, chest x-ray and labs. Patient treated with IV hydration and consideration for IV insulin administration. EKG no injury. Chest x-ray normal. CBC normal. Urinalysis without pyuria. This makes the possibility of chlamydia and gonorrhea much less likely. Treatment with Rocephin and azithromycin not indicated at this time. Immediate be indicated if patient test positive for chlamydia and gonorrhea. Repeat glucose still high. Insulin bolus given. Repeat glucose still high. Continued IV hydration and insulin and oral medication given to the patient. Discussed findings with patient and treatment plan. Final blood sugar signed out to Dr. Bales. No medical emergency at this time. Patient improved. Patient stable for outpatient observation and treatment. Laboratory Tests Test 04/29/20 10:35 04/29/20 11:16 04/29/20 11:49 04/29/20 12:43 Urine Color Pale yellow Urine Appearance Clear Urine pH 5 (4.5-8.0) Urine Specific [place] 1.010 (1.005-1.035) Urine Protein 2+ (NEGATIVE) H Urine Glucose (UA) 4+ (NEGATIVE) H Urine Ketones Negative (NEGATIVE) Urine Blood Negative (NEGATIVE) Urine Nitrite Negative (NEGATIVE) Urine Bilirubin Negative (NEGATIVE) Urine Urobilinogen Normal MG/DL (0.0-1.0) Urine Leukocyte Esterase Negative (NEGATIVE) Urine RBC 0 /HPF (0 - 0) Urine WBC 0-2 /HPF (0 - 0) Urine Squamous Epithelial Cells Occasional /LPF Urine Bacteria None /HPF (NONE) Urine Opiates Screen Negative (NEGATIVE) Urine Barbiturates Screen Negative (NEGATIVE) Phencyclidine (PCP) Screen Negative (NEGATIVE) Urine Amphetamines Screen Negative (NEGATIVE) Urine Benzodiazepines Screen Negative (NEGATIVE) Urine Cocaine Screen Negative (NEGATIVE) Urine Marijuana (THC) Screen Negative (NEGATIVE) Chlamydia trachomatis RNA Pending Neisseria gonorrhoeae RNA Pending POC Whole Blood Glucose Pending Pending White Blood Count 6.9 K/UL (4.8-10.8) Red Blood Count 5.73 M/UL (4.70-6.10) Hemoglobin 17.4 G/DL (14.2-18.0) Hematocrit 55.4 % (42.0-52.0) H Mean Corpuscular Volume 97 FL (80-99) Mean Corpuscular Hemoglobin 30.3 PG (27.0-31.0) Mean Corpuscular Hemoglobin Concent 31.4 G/DL (32.0-36.0) L Red Cell Distribution Width 11.8 % (11.6-14.8) Platelet Count 175 K/UL (150-450) Mean Platelet Volume 8.5 FL (6.5-10.1) Neutrophils (%) (Auto) 60.6 % (45.0-75.0) Lymphocytes (%) (Auto) 31.5 % (20.0-45.0) Monocytes (%) (Auto) 5.3 % (1.0-10.0) Eosinophils (%) (Auto) 1.3 % (0.0-3.0) Basophils (%) (Auto) 1.3 % (0.0-2.0) Prothrombin Time 11.4 SEC (9.30-11.50) Prothrombin Time INR 1.0 (0.9-1.1) Activated Partial Thromboplast Time 27 SEC (23-33) Sodium Level 137 MMOL/L (136-145) Potassium Level 4.3 MMOL/L (3.5-5.1) Chloride Level 100 MMOL/L (98-107) Carbon Dioxide Level 28 MMOL/L (21-32) Anion Gap 9 mmol/L (5-15) Blood Urea Nitrogen 10 mg/dL (7-18) Creatinine 1.4 MG/DL (0.55-1.30) H Estimated Glomerular Filtration Rate > 60 mL/min (>60) Glucose Level 535 MG/DL (74-106) *H Calcium Level 8.7 MG/DL (8.5-10.1) Total Bilirubin 0.4 MG/DL (0.2-1.0) Aspartate Amino Transferase (AST) 19 U/L (15-37) Alanine Aminotransferase (ALT) 32 U/L (12-78) Alkaline Phosphatase 85 U/L (46-116) Total Creatine Kinase 73 U/L (26-308) Troponin I 0.009 ng/mL (0.000-0.056) Pro-B-Type Natriuretic Peptide 19 pg/mL (0-125) Total Protein 8.2 G/DL (6.4-8.2) Albumin 3.7 G/DL (3.4-5.0) Globulin 4.5 g/dL Albumin/Globulin Ratio 0.8 (1.0-2.7) L Test 04/29/20 13:30 POC Whole Blood Glucose Pending EKG Diagnostic Results Rate: normal Rhythm: NSR ST Segments: no acute changes - Left axis deviation Rhythm Strip Diag. Results EP Interpretation: yes Rhythm: NSR, no PVC's, no ectopy Chest X-Ray Diagnostic Results Chest X-Ray Diagnostic Results : Chest X-Ray Ordered: Yes # of Views/Limited/Complete: 1 View Indication: Other EP Interpretation: Yes Interpretation: no consolidation, no effusion, no pneumothorax Impression: No acute disease Electronically Signed by: Electronically signed by Chad Martinez MD Last Vital Signs Date Time Temp Pulse Resp B/P (MAP) Pulse Ox O2 Delivery O2 Flow Rate FiO2 04/29/20 15:26 98.5 69 15 142/88 100 Room Air Status: improved Reevaluation Impression This note started off as a limited exam however due to elevated blood sugar the complexity increased and he became a full evaluation Disposition: HOME, SELF-CARE Condition: Improved Scripts Lactulose (LACTULOSE*) 20 Gm/30 Ml Solution 30 ML ORAL BID PRN for Constipation, #240 ML 0 Refills Prov: Chad Martinez MD 04/29/20 Clotrimazole* (LOTRIMIN*) 15 Gm Cream..g. 1 APPLIC TOPIC TWICE A DAY, #30 GM Prov: Chad Martinez MD 04/29/20 Hydrocodone Bit/Acetaminophen 5-325* (NORCO 5-325 TABLET*) 1 Each Tablet 1 TAB ORAL Q6H PRN for FOR PAIN, #6 TAB 0 Refills Prov: Chad Martinez MD 04/29/20 Fluconazole (FLUCONAZOLE) 100 Mg Tablet 100 MG ORAL DAILY, #7 TAB 0 Refills Prov: Chad Martinez MD 04/29/20 Referrals: NON PHYSICIAN (PCP) Chad Martinez MD Apr 29, 2020 10:57
[2020-04-29] MEDS ORDERED: Fluconazole 100mg tab ORAL ONE (11:00)
--- NOTE | 2020-04-29 11:35 | NUR ---
HAND-OFF: Report given to Pam.
[2020-04-29] MEDS ORDERED: HYDROcodone/Acetamin 5/325 tab ORAL ONE (11:45)
--- NOTE | 2020-04-29 12:07 | NUR ---
ED Nurse Note: received the pt. in stable condition form vel garcia. pt. is aaox4. ambulatory with no s/s of acute distress noted at this time. inserted iv access on the patient and tolerated well
[2020-04-29 12:14] LABS: BASOPHILS % (AUTO) 1.3 % (0.0-2.0); EOSINOPHILS % (AUTO) 1.3 % (0.0-3.0); HEMATOCRIT 55.4 % (42.0-52.0); HEMOGLOBIN 17.4 G/DL (14.2-18.0); LYMPHOCYTES % (AUTO) 31.5 % (20.0-45.0); MEAN CORPUSCULAR VOLUME 97 FL (80-99); MONOCYTES % (AUTO) 5.3 % (1.0-10.0); NEUTROPHILS % (AUTO) 60.6 % (45.0-75.0); PLATELET COUNT 175 K/UL (150-450); RED BLOOD COUNT 5.73 M/UL (4.70-6.10); RED CELL DISTRIBUTION WIDTH 11.8 % (11.6-14.8); WHITE BLOOD COUNT 6.9 K/UL (4.8-10.8)
[2020-04-29 12:34] LABS: ALANINE AMINOTRANSFERASE 32 U/L (12-78); ALBUMIN 3.7 G/DL (3.4-5.0); ALBUMIN/GLOBULIN RATIO 0.8 (1.0-2.7); ALKALINE PHOSPHATASE 85 U/L (46-116); ANION GAP 9 mmol/L (5-15); ASPARTATE AMINO TRANSFERASE 19 U/L (15-37); BILIRUBIN,TOTAL 0.4 MG/DL (0.2-1.0); BLOOD UREA NITROGEN 10 mg/dL (7-18); CALCIUM 8.7 MG/DL (8.5-10.1); CARBON DIOXIDE 28 MMOL/L (21-32); CHLORIDE 100 MMOL/L (98-107); CREATINE KINASE 73 U/L (26-308); CREATININE 1.4 MG/DL (0.55-1.30); POTASSIUM 4.3 MMOL/L (3.5-5.1); SODIUM 137 MMOL/L (136-145)
--- NOTE | 2020-04-29 12:56 | Diagnostic Imaging Report ---
EXAM: XR Chest, 1 View CLINICAL HISTORY: ALOC TECHNIQUE: Frontal view of the chest. COMPARISON: Chest radiograph on 07/28/2019 FINDINGS: Hardware: None. Lungs/pleura: Normal. No focal consolidation. No pleural effusion or pneumothorax. Heart/mediastinum: Normal. No cardiomegaly. Soft tissues: Unremarkable. Bones: No acute fracture. Upper abdomen: Normal. IMPRESSION: No acute disease identified.
[2020-04-29] MEDS ORDERED: Insulin Human Regular 100units/ml 3ml IV ONE ×2 (13:00→14:15)
[2020-04-29 13:10] VITALS: BP 154/96
[2020-04-29] MEDS ORDERED: metFORMIN 500mg tab ORAL STA (14:15)
[2020-04-29] MEDS ORDERED: sitaGLIPtin 50mg tab ORAL STA (14:15)
[2020-04-29] MEDS ORDERED: FLUCONAZOLE100 MG ORAL (14:20)
[2020-04-29] MEDS ORDERED: CLOTRIMAZOLE15 GM TOPIC (14:20)
[2020-04-29] MEDS ORDERED: NORCO 5-325 TA1 EAC1 ORAL (14:20)
[2020-04-29] MEDS ORDERED: LACTULOSE20 GM/301 ORAL (14:50)
[2020-04-29 15:21] VITALS: BP 145/90
[2020-04-29 15:26] VITALS: BP 142/88
--- NOTE | 2020-04-29 15:26 | NUR ---
ER DISCHARGE NOTE: Patient is cleared to be discharged per ERMD, pt is aox4, on room air, with stable vital signs. pt was given dc and prescription instructions, pt was able to verbalize understanding, pt id band and iv site removed without complications. pt is able to ambulate with steady gait. pt took all belongings and left with his friend.
== END 2020-04-29 15:26 | disposition home or self-care (01) ==
LOC: EMR 10:41
DX: E11.65 Type 2 diabetes mellitus with hyperglycemia (principal); B37.49 Other urogenital candidiasis; I10 Essential (primary) hypertension; I69.354 Hemiplegia and hemiparesis following cerebral infarction affecting left non-dominant side; K59.00 Constipation, unspecified; Z79.4 Long term (current) use of insulin; G89.29 Other chronic pain; M79.672 Pain in left foot
CPT/HCPCS: 36415; 71045; 80053; 80307; 81003; 82550; 82962; 83880; 84484; 85025; 85610; 85730; 87491; 87590; 93005; 96361; 96374; 96376; 99284; J1815; J7030